=== PATIENT | male | born 1995 | race American Indian/Alaskan Native ===

== ENCOUNTER 2019-11-01 08:24 | Emergency (ER) | payer SELFPAY ==
[2019-11-01 08:32] VITALS: BP 111/63
[2019-11-01 09:09] LABS: Basophils % (Auto) 0.8 % (0.0-1.8); Eosinophils % (Auto) 0.4 % (0.0-4.3); Hematocrit 44.7 % (35.5-45.6); Hemoglobin 14.9 gm/dl (11.8-15.2); Lymphocytes % (Auto) 44.7 % (13.4-35.0); Mean Corpuscular HGB Conc 33 % (32-34); Mean Corpuscular Volume 88 fl (84-94); Monocytes # (Auto) 0.3 K/mm3 (0.0-0.8); Monocytes % (Auto) 7.1 % (0.0-7.3); Platelet Count 250 K/mm3 (140-440); Red Blood Count 5.06 M/mm3 (3.65-5.03); Red Cell Distribution Width 13.7 % (13.2-15.2)
[2019-11-01 09:18] LABS: Bacteria,Urine 1+ /HPF (Negative); Bilirubin,Urine NEG (Negative); Blood,Urine NEG (Negative); Color,Urine Yellow (Yellow); Protein,Urine <15 mg/dL mg/dL (Negative)
[2019-11-01 09:36] LABS: Alanine Aminotransferase 14 units/L (7-56); Albumin 4.1 g/dL (3.9-5); BUN/Creatinine Ratio 13; Blood Urea Nitrogen 14 mg/dL (9-20); Calcium 9.3 mg/dL (8.4-10.2); Hemolysis Index 24
[2019-11-01] MEDS ORDERED: MORPHINE 2 MG/1 ML INJ IV ONE (10:42)
--- NOTE | 2019-11-01 10:42 | Emergency Department Report ---
ED Back Pain/Injury HPI - General Chief Complaint: Abdominal Pain Stated Complaint: BACK PAINS SINCE THURSDAY Time Seen by Provider: 11/01/19 09:45 Source: patient Mode of arrival: Ambulatory Limitations: No Limitations - History of Present Illness Initial Comments: This is a 24-year-old -[place] male that presents to the emergency room with bilateral flank pain for 5 days. Patient states he went to work today and his manager systems told him to go home. Patient states he started feeling sharp stabbing pain to bilateral flanks that is nonradiating. He denies recent injury, penile discharge, urinary frequency, urinary urgency, dysuria, hematuria, testicular enlargement or pain. MD Complaint: back pain Onset/Timin -: days(s) Similar Symptoms Previously: No Place: home Radiation: none Severity: severe Quality: sharp, stabbing Consistency: intermittent Improves With: none Worsens With: movement, sitting upright Associated Symptoms: denies: numbness, difficulty urinating, incontinence, fever/chills - Related Data Allergies Allergy/AdvReac Type Severity Reaction Status Date / Time No Known Allergies Allergy Unverified 11/01/19 08:30 ED Review of Systems ROS: Stated complaint: BACK PAINS SINCE THURSDAY Other details as noted in HPI Constitutional: denies: chills, fever Respiratory: denies: cough, shortness of breath, wheezing Cardiovascular: denies: chest pain, palpitations Gastrointestinal: denies: abdominal pain, nausea, diarrhea Musculoskeletal: back pain (Bilateral flank pain). denies: joint swelling, arthralgia Skin: denies: rash, lesions Neurological: denies: headache, weakness, paresthesias Psychiatric: denies: anxiety, depression ED Back Pain Physical Exam - Exam General: Vital signs noted. No distress. Alert and acting appropriately. Back/Abdomen: Yes Abdominal Tenderness (RLQ), Yes Flank Tenderness (Bilateral CVA tenderness), No Perithoracic Tenderness, No Perilumbar Tenderness, No Sacroiliac Tenderness, No Straight Leg Raise Pain Neuro: Yes Normal Sensation, Yes Normal DTR's, Yes Normal Gait, No Motor We akness ED Course Vital Signs 11/01/19 08:31 Temperature 98.0 F Pulse Rate 70 Respiratory 16 Rate Blood Pressure 111/63 O2 Sat by Pulse 95 Oximetry - Reevaluation(s) Reevaluation #1: 02/11/20 13:16 Informed patient signed out AMA by nursing staff. Patient is states he can no longer wait for CT results. ED Medical Decision Making - Lab Data Result diagrams: 11/01/19 08:55 11/01/19 08:55 Lab Results 11/01/19 11/01/19 11/01/19 Range/Units 08:40 08:55 08:55 WBC 4.4 L (4.5-11.0) K/mm3 RBC 5.06 H (3.65-5.03) M/mm3 Hgb 14.9 (11.8-15.2) gm/dl Hct 44.7 (35.5-45.6) % MCV 88 (84-94) fl MCH 29 (28-32) pg MCHC 33 (32-34) % RDW 13.7 (13.2-15.2) % Plt Count 250 (140-440) K/mm3 Lymph % (Auto) 44.7 H (13.4-35.0) % Weld % (Auto) 7.1 (0.0-7.3) % Eos % (Auto) 0.4 (0.0-4.3) % Baso % (Auto) 0.8 (0.0-1.8) % Lymph # 2.0 (1.2-5.4) K/mm3 Weld # 0.3 (0.0-0.8) K/mm3 Eos # 0.0 (0.0-0.4) K/mm3 Baso # 0.0 (0.0-0.1) K/mm3 Seg Neutrophils % 47.0 (40.0-70.0) % Seg Neutrophils # 2.1 (1.8-7.7) K/mm3 Sodium 139 (137-145) mmol/L Potassium 4.3 (3.6-5.0) mmol/L Chloride 102.0 (98-107) mmol/L Carbon Dioxide 23 (22-30) mmol/L Anion Gap 18 mmol/L BUN 14 (9-20) mg/dL Creatinine 1.1 (0.8-1.5) mg/dL Estimated GFR > 60 ml/min BUN/Creatinine Ratio 13 % Glucose 87 (75-100) mg/dL Calcium 9.3 (8.4-10.2) mg/dL Total Bilirubin 0.50 (0.1-1.2) mg/dL AST 20 (5-40) units/L ALT 14 (7-56) units/L Alkaline Phosphatase 35 (35-129) units/L Total Protein 6.9 (6.3-8.2) g/dL Albumin 4.1 (3.9-5) g/dL Albumin/Globulin Ratio 1.5 % Urine Color Yellow (Yellow) Urine Turbidity Clear (Clear) Urine pH 5.0 (5.0-7.0) Ur Specific [place] 1.023 (1.003-1.030) Urine Protein <15 mg/dl (Negative) mg/dL Urine Glucose (UA) Neg (Negative) mg/dL Urine Ketones Neg (Negative) mg/dL Urine Blood Neg (Negative) Urine Nitrite Neg (Negative) Urine Bilirubin Neg (Negative) Urine Urobilinogen 2.0 (<2.0) mg/dL Ur Leukocyte Esterase Mod (Negative) Urine WBC (Auto) 15.0 H (0.0-6.0) /HPF Urine RBC (Auto) 4.0 (0.0-6.0) /HPF Urine Bacteria (Auto) 1+ (Negative) /HPF - Medical Decision Making This is a 24-year-old male who presents to the emergency room with bilateral flank pain. Vitals are stable. Patient no acute distress. Right lower quadrant tenderness on exam. Given IV fluids, analgesics, and normal saline. Work-up: BMP, CBC, urinalysis, and CT of abdomen and pelvis was obtained. There is mild elevation of WBCs and leukocyte Estrace or urinalysis. All other labs are unremarkable. Nursing staff informed patient refused to wait for CT results stating he had to [place] home for something. Patient was given risk associated with leaving AGAINST MEDICAL ADVICE prior to choice of signing paperwork. Critical care attestation.: If time is entered above; I have spent that time in minutes in the direct care of this critically ill patient, excluding procedure time. ED Disposition Clinical Impression: Left against medical advice, Bilateral flank pain Disposition: DC-07 LEFT AGAINST MED ADVICE Is pt being admited?: No Condition: Stable Referrals: PRIMARY CARE, [Primary Care Provider] - 3-5 Days Forms: AMA Form
[2019-11-01] MEDS ORDERED: SODIUM CHLORIDE 0.9% 1000 ML 1,000 ML IV ONE (10:43)
--- NOTE | 2019-11-01 13:12 | Cat Scan Report ---
CT ABDOMEN AND PELVIS WITH CONTRAST HISTORY: Right lower quadrant tenderness and bilateral flank pain. COMPARISON: No relevant comparison imaging. TECHNIQUE: Routine abdominal and pelvic CT exam performed following intravenous contrast administrat ion. 100 cc of Omnipaque 300 was injected intravenously without incident. Consent was obtained prior to the administration of the contrast. All CT scans at this location are performed using CT dose redu ction for [facility] by means of automated exposure control. FINDINGS: CT ABDOMEN: Lung Bases: No significant abnormality. Liver: No significant abnormality. Biliary: No significant abnormality. Spleen: No significant abnormality. Unenlarged. Pancreas: The pancreatic tail is relatively large with normal density. No peripancreatic fluid or pse udocyst. No mass or hemorrhage. The pancreatic body and head are normal. Adrenals: No significant abnormality. Kidneys: No significant abnormality. 1.6 cm right lower pole renal cyst. No urinary calculi. The star l collecting systems and ureters are nondilated. Lymphatics: No lymphadenopathy. Vasculature: No significant abnormality. Bowel/Peritoneum: A large volume of stool throughout the colon. No significant abnormality. No free a ir. No free fluid. Normal appendix. CT PELVIC: : No significant abnormality. Lymphatics: No lymphadenopathy. Osseous Structures: No aggressive appearing osseous lesions. Additional Findings: None IMPRESSION: 1. Enlargement of the pancreatic tail which is of uncertain clinical significance given that there ar e no other signs to suggest acute or chronic pancreatitis. 2. The rest of the exam is normal. Signer Name: Lorenzo Monique MD Signed: 11/01/2019 1:08 PM Workstation Name: [id number]
== END 2019-11-01 13:20 | disposition left against medical advice (07) ==
LOC: ED 08:24
DX: R10.9 Unspecified abdominal pain (principal)
CPT/HCPCS: 36415; 74177; 80053; 81001; 85025; 87086; 96374; 99284; J2270; J7030; Q9967